=== PATIENT | female | born 1995 | race Caucasian/White ===

== ENCOUNTER 2018-06-07 02:51 | Emergency (ER) | payer MEDICAID, OTHER ==
[2018-06-07 02:52] VITALS: BMI 17.7
[2018-06-07 03:14] VITALS: TEMP 98.6
--- NOTE | 2018-06-07 03:25 | C.PDOC ---
History Of Present Illness 23 year old female is brought to the ED by EMS and [employer] for evaluation. Patient was inside an [employer] when she started acting bizarre as per the chair car driver who called Police. Patient admits to drinking alcohol tonight. Patient denies SI/HI, hallucinations, injury, fall, trauma. Chief Complaint (Nursing): Substance Abuse History Per: Patient, EMS History/Exam Limitations: no limitations Onset/Duration Of Symptoms: Hrs Current Symptoms Are (Timing): Still Present Suicide/Self Injury Attempted (Context): None Modifying Factor(s): Alcohol Associated Symptoms: denies: Depression, Suicidal Thoughts, Suicidal Plan Recent travel outside of the [place]: No Additional History Per: Patient, Law Enforcement Past Medical History Reviewed: Historical Data, Nursing Documentation, Vital Signs Vital Signs: Last Vital Signs Temp 98.6 F 06/07/18 03:07 Pulse 100 H 06/07/18 03:07 Resp 26 H 06/07/18 03:07 BP 114/82 06/07/18 03:07 Pulse Ox 95 06/07/18 03:07 - Medical History PMH: Asthma, Bronchitis Denies: Chronic Kidney Disease Surgical History: No Surg Hx - [facility] INJECT/INFUSE ELECTROLYT (01/13/14) INJECT/INFUSE NEC (01/13/14) Family History: States: Unknown Family Hx - Social History Hx Tobacco Use: No Hx Alcohol Use: No Hx Substance Use: No - Immunization History Hx Tetanus Toxoid Vaccination: No Hx Influenza Vaccination: No Hx Pneumococcal Vaccination: No Review Of Systems Constitutional: Negative for: Fever, Chills Cardiovascular: Negative for: Chest Pain Respiratory: Negative for: Shortness of Breath Gastrointestinal: Positive for: Vomiting. Negative for: Nausea, Abdominal Pain Skin: Negative for: Rash Neurological: Negative for: Weakness, Numbness Psych: Negative for: Depression, Suicidal ideation Physical Exam - Physical Exam Appears: Non-toxic, No Acute Distress Skin: Normal Color, Warm, Dry Head: Atraumatic, Normacephalic Eye(s): bilateral: Normal Inspection Neck: Normal ROM, Supple Chest: Symmetrical Cardiovascular: Rhythm Regular Respiratory: Normal Breath Sounds, No Rales, No Rhonchi, No Wheezing Gastrointestinal/Abdominal: Soft, No Tenderness, No Guarding, No Rebound Extremity: Normal ROM, No Tenderness, No Swelling Neurological/Psych: Oriented x3, Normal Speech Gait: Steady ED Course And Treatment - Laboratory Results Result Diagrams: 06/07/18 04:15 06/07/18 04:15 O2 Sat by Pulse Oximetry: 95 (On RA) Pulse Ox Interpretation: Normal Medical Decision Making Medical Decision Making: Plan: * Labs * UA Disposition - Disposition Disposition Time: 07:00 Condition: STABLE Forms: [facility] (Vietnamese) - Clinical Impression Clinical Impression: Alcohol intoxication - Scribe Statement The provider has reviewed the documentation as recorded by the Scribe Carlos Barry All medical record entries made by the Scribe were at my direction and personally dictated by me. I have reviewed the chart and agree that the record accurately reflects my personal performance of the history, physical exam, medical decision making, and the department course for this patient. I have also personally directed, reviewed, and agree with the discharge instructions and disposition.
[2018-06-07] MEDS ORDERED: Sodium Chloride 0.9% 1,000 ML IV ONE ×2 (03:50)
[2018-06-07 04:21] LABS: BASO # 0.1 K/uL (0.0-0.2); BASO % 1.2 % (0.0-2.0); EOS # 0.1 K/uL (0.0-0.7); EOS % 1.2 % (0.0-4.0); HEMOGLOBIN 12.5 g/dL (11.0-16.0); LYMPH % 34.9 % (20.0-40.0); MEAN CELL VOLUME 88.5 fL (81.0-99.0); MEAN CORPUSCULAR HEMOGLOBIN 28.9 pg (27.0-31.0); MEAN CORPUSCULAR HGB CONC 32.7 g/dL (33.0-37.0); MEAN PLATELET VOLUME 9.3 fL (7.2-11.7); MONO # 0.4 K/uL (0.0-0.8); MONO % 7.1 % (0.0-10.0); NEUT # 3.1 K/uL (1.8-7.0); NEUT % 55.6 % (50.0-75.0); RBC 4.32 Mil/uL (3.80-5.20); RED CELL DISTRIBUTION WIDTH 18.7 % (11.5-14.5); WHITE BLOOD COUNT 5.6 K/uL (4.8-10.8)
[2018-06-07 04:27] LABS: ALB/GLOB RATIO 1.5 (1.0-2.1); ALBUMIN 4.6 g/dL (3.5-5.0); ALT/SGPT 20 U/L (9-52); AST/SGOT 28 U/L (14-36); BLOOD UREA NITROGEN 9 mg/dL (7-17); GFR NON-AFRICAN AMERICAN > 60
[2018-06-07 04:58] LABS: HCG,QUALITATIVE URINE NEGATIVE (NEGATIVE)
[2018-06-07 05:00] LABS: SQUAMOUS EPITHIAL < 1 /hpf (0-5); URINE BACTERIA RARE (<OCC); URINE BILIRUBIN NEGATIVE (NEGATIVE); URINE BLOOD 2+ (NEGATIVE); URINE CLARITY Clear (Clear); URINE COLOR Straw (YELLOW); URINE GLUCOSE (UA) NORMAL (Normal); URINE LEUKOCYTE ESTERASE NEG Leu/uL (Negative); URINE PROTEIN NEGATIVE (NEGATIVE); URINE UROBILINOGEN NORMAL mg/dL (0.2-1.0)
[2018-06-07 05:10] LABS: BARBITURATES, UR NEGATIVE (NEGATIVE); BENZODIAZEPINES, UR NEGATIVE (NEGATIVE); OPIATES, UR NEGATIVE (NEGATIVE); PHENCYCLIDINE, UR NEGATIVE (NEGATIVE)
[2018-06-07 10:07] VITALS: BP 118/75; PULSE 106; RESP 18; O2SAT 98
== END 2018-06-07 10:07 | disposition home or self-care (01) ==
LOC: C.ER 02:51
DX: F10.129 Alcohol abuse with intoxication, unspecified (principal); Y90.6 Blood alcohol level of 120-199 mg/100 ml
CPT/HCPCS: 80053; 81001; 83735; 84100; 84703; 85025; 96361; 96374; 99284; G0480; J2060; J7030